=== PATIENT | female | born 1965 | race Caucasian/White ===

== ENCOUNTER 2021-06-09 11:04 | Emergency (ER) | payer MEDICAID, OTHER ==
[2021-06-09] MEDS ORDERED: Lidocaine 1% 10 ML MDV INJECT ONE (11:36)
[2021-06-09] MEDS ORDERED: Diphtheria,Pertussis(Acell),Tetanus Vaccine 0.5 ML Syringe IM ONE (11:36)
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
== END 2021-06-09 13:10 | disposition home or self-care (01) ==
LOC: JD.ED 11:04
DX: S81.812A Laceration without foreign body, left lower leg, initial encounter (principal); Z23 Encounter for immunization; W22.09XA Striking against other stationary object, initial encounter
CPT/HCPCS: 12004; 90471; 90715; 99282-25; 99283